=== PATIENT | male | born 1965 | race Caucasian/White ===

== ENCOUNTER 2016-08-26 10:51 | Emergency (ER) | payer OTHER, MEDICARE ==
--- NOTE | 2016-08-26 11:15 | ED DYSPNEA/ASTHMA COMPLAINT ---
History of Present Illness General Chief Complaint: Abdominal Pain/Flank Pain Stated Complaint: ABD PAIN,COUGH,+N/V,SOB Source: patient, old records Exam Limitations: poor historian Vital Signs & Intake/Output Vital Signs & Intake/Output Vital Signs Date Time Temp Pulse Resp B/P Pulse O2 O2 Flow FiO2 Ox Delivery Rate 08/26 1505 98.0 83 18 138/66 83 Room Air 08/26 1341 81 97 08/26 1259 97.1 82 21 140/67 98 BIPAP 50% 08/26 1217 96 BIPAP 50% 08/26 1209 78 97 08/26 1130 95 Nasal 3.0L Cannula 08/26 1056 97.6 92 24 168/98 85 Room Air Allergies Coded Allergies: NO KNOWN ALLERGIES (05/22/11) Reconcile Medications Albuterol Sulfate (Ventolin Hfa) 90 MCG HFA.AER.AD 2 PUF INH Q4-6 PRN PRN SHORTNESS OF BREATH (Reported) Aripiprazole 5 MG TABLET 1 TAB PO DAILY MENTAL HEALTH (Reported) Aspirin (Aspirin*) 81 MG TAB.CHEW 1 TAB PO DAILY HEART HEALTH (Reported) Atorvastatin Calcium 40 MG TABLET 1 TAB PO DAILY cholesterol (Reported) Benztropine Mesylate 2 MG TABLET 1 TAB PO QPM [place] (Reported) Fluoxetine HCl 20 MG CAPSULE 1 CAP PO DAILY MENTAL HEALTH (Reported) Fluticasone/Salmeterol (Advair 250-50 Diskus) 250 MCG-50 MCG/DOSE BLST.W.DEV 1 PUF INH BID BREATHING PROBLEMS (Reported) Lisinopril 20 MG TABLET 1 TAB PO DAILY HEART (Reported) Metformin HCl 500 MG TABLET 1 TAB PO BID DIABETES (Reported) Methylprednisolone. (Medrol) 4 MG TAB.DS.PK 1 DP PO AD breathing Omeprazole 40 MG CAPSULE.DR 1 CAP PO DAILY GI (Reported) Triage Note: PT PRESENTS TO ER C/O OF ABDOMINAL PAIN X 2 WEEKS. PT ALSO C/O OF N/V ON AND OFF A WEEK. PT STATES HE ALSO FEELS SOB WITH EXERTION. Triage Nurses Notes Reviewed? yes HPI: patient is a 51-year-old male presents complaining of cough with white sputum production 2 weeks. Patient reports that symptoms have been moderate, he presented today due to the continued symptoms. Dyspnea with exertion, not at rest. Positive associated wheezing. Patient has been using his albuterol inhaler with no improvement. Patient denies chest pain, abdominal pain, nausea, vomiting, fevers, chills. Patient has a history of sleep apnea, reports that he is unable to wear his CPAP mask. (ROD BONNER) Past History Travel History Traveled to [place] past 21 day No Medical History Any Pertinent Medical History? see below for history Cardiovascular: hypertension Respiratory: asthma, obstructive sleep apnea Psychiatric: depression Influenza Vaccine: 02/23/10 Surgical History Surgical History: PACEMAKER Psychosocial History Services at Home Nursing What is your primary language Lao Tobacco Use: Current Daily Use Daily Tobacco Use Amount/Type: => 5 Cigarettes daily Family History Hx Contributory? No (ROD BONNER) Review of Systems Review of Systems Constitutional: Denies: chills, fever. EENTM: Reports: no symptoms. Respiratory: Reports: see HPI. Cardiovascular: Denies: chest pain, peripheral edema. GI: Reports: abdominal pain (per mother, patient denies). Denies: nausea, vomiting. Genitourinary: Reports: no symptoms. Musculoskeletal: Reports: no symptoms. Skin: Reports: no symptoms. Neurological/Psychological: Reports: no symptoms. Hematologic/Endocrine: Reports: no symptoms. Immunologic/Allergic: Reports: no symptoms. (ROD BONNER) Physical Exam Physical Exam General Appearance: alert, awake, obese Head: atraumatic, normal appearance Eyes: Bilateral: normal appearance, PERRL, EOMI. Ears, Nose, Throat: normal pharynx, normal ENT inspection, hearing grossly normal Neck: normal inspection, supple, full range of motion Respiratory: diffuse moderate inspiratory and expiratory wheezing Cardiovascular: regular rate/rhythm Peripheral Pulses: 2+ radial (R) Gastrointestinal: soft, non-tender Extremities: normal inspection, normal capillary refill, normal range of motion, 2+ bilateral lower extremity edema Neurologic/Psych: awake, alert, oriented x 3 Skin: intact, normal color, warm/dry Lymphatic: no anterior cervical leah Core Measures ACS in differential dx? Yes ASA ordered for poss ACS? No-ACS ruled out Severe Sepsis Present: No Septic Shock Present: No (ROD BONNER) Progress Differential Diagnosis: asthma, AMI, CHF, COPD, pulmonary embolism, pneumonia Plan of Care: Orders Procedure Date/time Status LACTIC ACID 08/26 1413 Active Add-on Test (ER Only) 08/26 1248 Active BIPAP 08/26 1208 Active OXYGEN SETUP (GEN) 08/26 1141 Complete B-TYPE NATRIURETIC PEP (BNP) 08/26 1126 Complete ARTERIAL BLOOD GAS (GEN) 08/26 111 Complete BLOOD CULTURE 08/26 1113 Active TROPONIN LEVEL 08/26 1113 Complete LACTIC ACID 08/26 1113 Complete COMPREHENSIVE METABOLIC PANEL 08/26 111 Complete CBC WITHOUT DIFFERENTIAL 08/26 111 Complete EKG 08/26 1100 Active Laboratory Tests 08/26/16 1139: CBC w Diff NO MAN DIFF REQ, RBC 4.71, MCV 85.9, MCH 28.5, RDW 17.9 H, MPV 8.6, Gran % 88.9 H, Lymphocytes % 6.9 L, Monocytes % 2.8, Eosinophils % 1.2, Basophils % 0.2, Absolute Granulocytes 8.7 H, Absolute Lymphocytes 0.7 L, Absolute Monocytes 0.3, Absolute Eosinophils 0.1, Absolute Basophils 0, PUBS MCHC 33.2 08/26/16 1130: pH 7.34 L, pCO2 67 *H, pO2 73 L, HCO3 36 H, ABG O2 Sat (Measured) 92.0 L, Carboxyhemoglobin 1.6, O2 Concentration % 3L, O2 Delivery Method NC, Phlebotomy Draw Site RIGHT RADIAL 08/26/16 1126: Anion Gap 12, Estimated GFR > 60, BUN/Creatinine Ratio 17.8, Glucose 89, Lactic Acid 1.4, Calcium 8.6, Total Bilirubin 1.5 H, AST 32, ALT 57, Alkaline Phosphatase 110, Troponin I < 0.01, Fad-M-Hdioiymfnhx Pept 117, Total Protein 6.4, Albumin 4.0, Globulin 2.4, Albumin/Globulin Ratio 1.7 Microbiology 08/26 112 BLOOD: Blood Culture - RECD 08/27 1119 BLOOD: Blood Culture - RECD Discussed with Dr. Iverson. 08/26/2016 1:14:03 PM: Patient reevaluated multiple times. Patient declining admission. Discussed his low oxygen levels, elevated carbon dioxide levels with the patient and his mother. Patient alert and oriented, does not appear confused. Stressed multiple times the risk of discharge. 08/26/2016 3:05:42 PM: Patient remained on the Bipap. Patient continues to decline admission. Risks including respiratory arrest and discussed with patient and his mother. Patient alert and oriented, appears to have capacity to make decisions. Patient signed out against medical advice. (ROD BONNER) Diagnostic Imaging: Viewed by Me: Radiology Read. Discussed w/RAD: Radiology Read. CXR Impression: PATIENT: KEILA WARNER PRESENT AGE: 51 PATIENT ACCOUNT NO: [id number] : 65 LOCATION: [facility] ORDERING PHYSICIAN: ROD ABBOTT SERVICE DATE: 08/26/16 EXAM TYPE: RAD - XRY- PORTABLE CHEST XRAY EXAMINATION: XR PORTABLE CHEST CLINICAL INFORMATION: Dyspnea. Cough with white sputum production. Hypoxia. Evaluate for pneumonia. COMPARISON: Several prior chest x-rays, most recent of which is dated 2012. TECHNIQUE: Portable AP semierect view of the chest was obtained. FINDINGS: Limited assessment due to incomplete inclusion of the lung bases, suboptimal exposure and motion artifact. Dual-chamber pacer leads are partially visualized with the tips not visualized. The cardiomediastinal silhouette is enlarged, likely accentuated by the portable AP technique. There is central vascular congestion and increased patchy opacity in both lung bases, suggestive of pneumonia or atelectasis. CP angles are indistinct though poorly assessed on this exam. No pneumothorax is present. Bony structures are grossly unremarkable. IMPRESSION: Limited study. Findings consistent with central vascular congestion and bibasilar atelectasis or pneumonia. DICTATED BY: TAYE DAIGLE MD DATE/ TIME DICTATED:08/26/161158 ABSTRACT CHECKER:ONIEL DATE/TIME TRANSCRIBED: 08/26/161158 CONFIDENTIAL, DO NOT COPY WITHOUT APPROPRIATE AUTHORIZATION. < Electronically signed in Other Vendor System> SIGNED BY: TAYE DAIGLE MD 08/26/16 1214 Initial ED EKG: normal sinus rhythm, nonspecific ST T wave chg Rhythm Strip: normal sinus rhythm (ROD BONNER) Departure Departure Time of Disposition: 1447 Disposition: LEFT AGAINST MEDICAL ADVICE Condition: Stable Clinical Impression Primary Impression: Hypercapnic respiratory failure Referrals: EDWIGE MCFADDEN MD (PCP/Family) Additional Instructions: You are signing out AGAINST MEDICAL ADVICE. Use your albuterol inhaler 2 puffs every 4 hours. Take Medrol Dose Elliot as directed. You are at increased risk for further worsening of her breathing including respiratory failure, respiratory arrest, heart attack and even . You may return to the emergency department at any time. Please follow-up with your primary doctor within the next 1-2 days for further evaluation. Please return immediately if your breathing worsens, chest pain, lethargy, confusion, fevers, or worsening of symptoms. Departure Forms: Customer Survey General Discharge Information Prescriptions: Current Visit Scripts Methylprednisolone. (Medrol) 1 DP PO AD #1 DP (ROD BONNER) PA/SKIN SPECIALIST Co-Sign Statement Statement: ED Attending supervision documentation- [X] I saw and evaluated the patient. I have also reviewed all the pertinent lab results and diagnostic results. I agree with the findings and the plan of care as documented in the PA's/SKIN SPECIALIST's documentation. [] I have reviewed the ED Record and agree with the PA's/SKIN SPECIALIST's documentation. [] Additions or exceptions (if any) to the PAs/SKIN SPECIALIST's note and plan are summarized below: [] (KRYSTLE IVERSON DO) Critical Care Note Critical Care Note Critical Care Time: 30-74 min (ROD BONNER)
[2016-08-26] MEDS ORDERED: FLUOXETINE HCL20 M2 PO (11:52)
[2016-08-26] MEDS ORDERED: ATORVASTATIN CA40 M1 PO (11:52)
[2016-08-26] MEDS ORDERED: ARIPIPRAZOLE5 M1 PO (11:52)
[2016-08-26] MEDS ORDERED: OMEPRAZOLE40 M1 PO (11:53)
[2016-08-26] MEDS ORDERED: METFORMIN HCL500 M3 PO (11:53)
[2016-08-26] MEDS ORDERED: LISINOPRIL20 M1 PO (11:53)
[2016-08-26] MEDS ORDERED: VENTOLIN HFA18 GM INH (11:53)
[2016-08-26 11:54] LABS: ABSOLUTE BASOPHIL COUNT 0 /CUMM (0.0-0.2); ABSOLUTE EOSINOPHIL COUNT 0.1 /CUMM (0.0-0.7); ABSOLUTE GRANULOCYTE CT 8.7 /CUMM (1.4-6.5); ABSOLUTE LYMPH COUNT 0.7 /CUMM (1.2-3.4); ABSOLUTE MONOCYTE COUNT 0.3 /CUMM (0.10-0.60); BASOPHIL % 0.2 % (0.0-2.0); EOSINOPHIL % 1.2 % (0-5); HEMATOCRIT 40.5 % (42-52); MEAN CORPUSCULAR HGB 28.5 PG (27.0-31.0); MEAN CORPUSCULAR HGB CONC 33.2 G/DL (33.0-37.0); MEAN CORPUSCULAR VOLUME 85.9 FL (80.0-94.0); MEAN PLATELET VOLUME 8.6 FL (7.4-10.4); PLATELET COUNT 184 /CUMM (130-400); RBC DISTRIBUTION WIDTH 17.9 % (11.5-14.5); RED BLOOD CELL CT 4.71 /CUMM (4.70-6.10); WHITE BLOOD CELL COUNT 9.8 /CUMM (4.8-10.8)
[2016-08-26] MEDS ORDERED: BENZTROPINE MESY2 M1 PO (11:54)
[2016-08-26] MEDS ORDERED: ADVAIR 250-501 EACH INH (11:55)
[2016-08-26] MEDS ORDERED: ASPIRIN81 M4 PO (11:55)
--- NOTE | 2016-08-26 12:14 | RADIOLOGY REPORT ---
EXAMINATION: XR PORTABLE CHEST CLINICAL INFORMATION: Dyspnea. Cough with white sputum production. Hypoxia. Evaluate for pneumonia. COMPARISON: Several prior chest x-rays, most recent of which is dated 12/31/2012. TECHNIQUE: Portable AP semierect view of the chest was obtained. FINDINGS: Limited assessment due to incomplete inclusion of the lung bases, suboptimal exposure and motion artifact. Dual-chamber pacer leads are partially visualized with the tips not visualized. The cardiomediastinal silhouette is enlarged, likely accentuated by the portable AP technique. There is central vascular congestion and increased patchy opacity in both lung bases, suggestive of pneumonia or atelectasis. CP angles are indistinct though poorly assessed on this exam. No pneumothorax is present. Bony structures are grossly unremarkable. IMPRESSION: Limited study. Findings consistent with central vascular congestion and bibasilar atelectasis or pneumonia.
[2016-08-26 12:20] LABS: GRANULOCYTE % 88.9 % (42.2-75.2)
[2016-08-26] MEDS ORDERED: MEDROL4 M2 PO (14:51)
[2016-08-26 15:05] VITALS: BP 138/66
== END 2016-08-26 15:08 | disposition left against medical advice (07) ==
LOC: ERH 10:51
PROVIDERS: Physician Assistant
DX: J96.92 Respiratory failure, unspecified with hypercapnia (principal); Z72.0 Tobacco use; R06.2 Wheezing; I10 Essential (primary) hypertension
CPT/HCPCS: 1263; 1288; 87040; 93005; 93010; 96374; 99291; J2930